=== PATIENT | female | born 1990 | race American Indian/Alaskan Native ===

== ENCOUNTER 2019-05-14 21:57 | Emergency (ER) | payer MEDICAID ==
[2019-05-15 06:00] VITALS: BP 129/74
--- NOTE | 2019-05-15 07:59 | Emergency Department Report ---
ED Upper Extremity Inj HPI - General Chief Complaint: Extremity Injury, Upper Stated Complaint: LT WRIST PAIN Time Seen by Provider: 05/15/19 07:21 Source: patient Mode of arrival: Stretcher Limitations: No Limitations - History of Present Illness Initial Comments: Physical pleasant 29-year-old female presents the emergency department for evaluation of an injury to her left wrist. Patient states she was walking and slipped on some water yesterday and fell on her left outstretched wrist. She reports pain across the dorsal side of her wrist. Pain is aggravated by movement. She rates the severity of her pain as a 9 out of 10 with no alleviating factors other than immobility. She denies any head injury or loss of consciousness. She reports history hyperthyroidism and denies any known allergies to medications. Immunizations are up to date per her knowledge. She denies any symptoms preceding the fall such as dizziness, weakness, chest pain, shortness of breath or any associated symptoms. - Related Data Previous Rx's Medication Instructions Recorded Last Taken Type Naproxen 500 mg PO BID #20 tablet 05/15/19 Unknown Rx Allergies Allergy/AdvReac Type Severity Reaction Status Date / Time No Known Allergies Allergy Unverified 05/14/19 23:55 ED Review of Systems ROS: Stated complaint: LT WRIST PAIN Other details as noted in HPI Comment: All other systems reviewed and negative Constitutional: denies: chills, fever Eyes: denies: eye pain, eye discharge, vision change ENT: denies: ear pain, throat pain Respiratory: denies: cough, shortness of breath, wheezing Cardiovascular: denies: chest pain, palpitations Endocrine: no symptoms reported Gastrointestinal: denies: abdominal pain, nausea, diarrhea Genitourinary: denies: urgency, dysuria, discharge Musculoskeletal: as per HPI, arthralgia. denies: back pain, joint swelling Skin: denies: rash, lesions Neurological: denies: headache, weakness, paresthesias Psychiatric: denies: anxiety, depression Hematological/Lymphatic: denies: easy bleeding, easy bruising ED Past Medical Hx - Past Medical History Previous Medical History?: Yes Additional medical history: Hyperthyroidism - Surgical History Past Surgical History?: No - Medications Home Medications: Home Medications Medication Instructions Recorded Confirmed Last Taken Type Naproxen 500 mg PO BID #20 tablet 05/15/19 Unknown Rx ED Physical Exam - General Limitations: No Limitations General appearance: alert, in no apparent distress - Head Head exam: Present: atraumatic, normocephalic - Eye Eye exam: Present: normal appearance - ENT ENT exam: Present: mucous membranes moist - Neck Neck exam: Present: normal inspection - Respiratory Respiratory exam: Present: normal lung sounds bilaterally. Absent: respiratory distress - Cardiovascular Cardiovascular Exam: Present: regular rate, normal rhythm. Absent: systolic murmur, diastolic murmur, rubs, gallop - GI/Abdominal GI/Abdominal exam: Present: soft, normal bowel sounds - Extremities Exam Extremities exam: Present: normal inspection, full ROM, tenderness, normal capillary refill, other (there is tenderness over the distal forearm worse on the lateral side. No snuffbox tenderness. No ecchymosis, edema or erythema. Normal passive range of motion. Normal distal sensation and capillary refill.) - Back Exam Back exam: Present: normal inspection - Neurological Exam Neurological exam: Present: alert, oriented X3 - Psychiatric Psychiatric exam: Present: normal affect, normal mood - Skin Skin exam: Present: warm, dry, intact, normal color. Absent: rash ED Course Vital Signs 05/14/19 05/15/19 23:55 05:34 Temperature 98.6 F 98.7 F Pulse Rate 112 H 91 H Respiratory 16 18 Rate Blood Pressure 129/74 Blood Pressure 130/66 [Left] O2 Sat by Pulse 100 100 Oximetry ED Medical Decision Making - Radiology Data Radiology results: report reviewed, image reviewed XRay Report Signed Patient: AKE ELAINE MR#: [id number] : 1990 Acct:[id number] Age/Sex: 29 / F ADM Date: 05/14/19 Loc: ED Attending Dr: Ordering Physician: YESSI HUGHES Date of Service: 05/15/19 Procedure(s): XR wrist 3+V LT Accession Number(s): [id number] cc: YESSI HUGHES Fluoro Time In Minutes: LEFT WRIST 4 VIEWS INDICATION: pain after fall. COMPARISON: None. IMPRESSION: No acute osseous or soft tissue abnormality. No significant DJD. Normal exam. Signer Name: Kieran Butcher Jr, MD Signed: 05/15/2019 8:41 AM Workstation Name: [id number] Transcribed By: TTR Dictated By: KIERAN BUTCHER JR, MD Electronically Authenticated By: KIERAN BUTCHER JR, MD Signed Date/Time: 05/15/19 0841 - Medical Decision Making X-rays negative for acute fractures or dislocations per radiology. Patient was placed in thumb spica splint due to mild tenderness at the base of the thumb although no specific tenderness over the anatomic snuffbox. Recommended follow- up with orthopedics or at least primary care doctor for repeat x-ray in 1-2 weeks to completely rule out a scaphoid injury due to the mechanism of injury. Patient was given strict return precautions for any change or worsening symptoms. She is in early vascular intact and vitals are stable. All questions were answered she verbalizes understanding of the diagnosis, treatment plan and follow-up instructions. Critical care attestation.: If time is entered above; I have spent that time in minutes in the direct care of this critically ill patient, excluding procedure time. ED Disposition Clinical Impression: Left wrist sprain Qualifiers: Encounter type: initial encounter Qualified Code(s): S63.502A - Unspecified sprain of left wrist, initial encounter Disposition: TO HOME OR SELFCARE Is pt being admited?: No Condition: Stable Instructions: Wrist Injury (ED) Prescriptions: Naproxen 500 mg PO BID #20 tablet Referrals: PRIMARY CAREMD [Primary Care Provider] - 3-5 Days NEREYDA FRASER MD [Staff Physician] - 7-10 days Forms: Work/School Release Form(ED) Time of Disposition: 09:00
--- NOTE | 2019-05-15 08:45 | XRay Report ---
LEFT WRIST 4 VIEWS INDICATION: pain after fall. COMPARISON: None. IMPRESSION: No acute osseous or soft tissue abnormality. No significant DJD. Normal exam. Signer Name: Kieran Butcher Jr, MD Signed: 05/15/2019 8:41 AM Workstation Name: [id number]
== END 2019-05-15 09:29 | disposition home or self-care (01) ==
LOC: ED 21:57
DX: S63.502A Unspecified sprain of left wrist, initial encounter (principal); E05.90 Thyrotoxicosis, unspecified without thyrotoxic crisis or storm; W01.0XXA Fall on same level from slipping, tripping and stumbling without subsequent striking against object, initial encounter; Y93.89 Activity, other specified; Y92.89 Other specified places as the place of occurrence of the external cause; Y99.8 Other external cause status